=== PATIENT | female | born 1945 | race Caucasian/White ===

== ENCOUNTER → 2017-01-17 | Day surgery (SDC) | payer MEDICARE, MEDICAID ==
[~2017-01-17] MED LIST: ACETAMINOPHEN PO; ADVIL COLD & SI1 TA1 PO; ADVIL COLD & SI1 TA2; ADVIL COLD & SI1 TA2 PO; ALEVE; ALLERGY RELIEF10 MG PO; ALPRAZOLAM PO; AMLODIPINE BESYL5 MG PO; ARTHRITIS PAIN650 M3 PO; ASPIRIN PO; CALCIUM +D & M1 EAC1 PO; CINNAMON ALPHA1 EACH PO; CLARITIN10 M2 PO; COQ-10100 MG PO; LASIX PO; LEVOTHYROXINE50 MCG PO; LEVOTHYROXINE75 MCG PO; LISINOPRIL PO; LORATADINE PO; LORTAB 5/500 TA1 TA1 PO; MAGNESIUM250 M1 PO; OMEPRAZOLE40 M1 PO; OMEPRAZOLE40 MG PO; PHENERGAN25 MG PO; PRILOSEC PO; RED YEAST RICE600 MG PO; SKELAXIN PO; SUDAFED30 M1 PO; SYNTHROID0.05 MG PO; TIROSINT100 MCG PO; TURMERIC500 M1 PO; VITAMIN B 12 SL; VITAMIN B-125000 MC1 PO; VITAMIN B-650 MG PO; VITAMIN D-32000 UNI1 PO; ZESTRIL10 M1 PO; ZESTRIL10 MG PO; [UNRECOGNIZED DRUG - OTHER]
--- NOTE | ~2017-01-17 | OR ---
Unit #: [id number] #: [id number] Patient: SHEREEN BOYD [id number] [address] [place], [place] [address] [id number] O MR#: [id number] NAME: SHEREEN BOYD ROOM: Date of Procedure: 01/17/2017 Admission Date: 01/17/2017 Surgeon: Yazan Lara M.D. : 1945 Attending Physician: Yazan Lara M.D. Referring Physician: Yazan Lara M.D. Primary Care Physician: Kiana Montano M.D. OPERATIVE REPORT PROCEDURE PERFORMED Esophagogastroduodenoscopy, endoscopic retrograde cholangiopancreatography with stent removal. 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 MEDICATIONS Monitored anesthesia. POSTOPERATIVE FINDINGS 1. Existing CBD stent was removed. 2. Sphincterotomy was extended at 12 o'clock position. 3. Ampulla somewhat prominent. Biopsies taken from sides of the ampulla. 4. Cholangiogram obtained shows significant dilation of the common bile duct, but no obstruction otherwise. 5. PD also was mildly dilated. 6. EGD exam shows evidence of hiatal hernia and esophageal ring along with gastritis. PLAN Continue with symptomatic treatment and PPIs. Follow up on the pathology report. DESCRIPTION OF PROCEDURE The patient was explained of the procedure, risks, and benefits along with risks and benefits of anesthesia. She was brought to the endoscopy room. Propofol anesthesia was given. Bite block was placed. The scope was passed down the mouth and esophagus, stomach, duodenum, and distal duodenum. Ampulla was seen, stent was seen extending out of the ampulla. Using the snare, I pulled the stent out of the bile duct in one piece under fluoroscopic and endoscopic guidance. Gently, at this point, we cannulated the bile duct first. Findings have been described above. Sphincterotomy was extended and biopsies were taken from the edges of the ampulla. Pancreatic duct was also injected, it shows some dilation, no clear obstruction was seen. At this point, we pulled the catheter out, limited EGD exam was performed which has findings as described above. The patient tolerated the procedure very well. No major complications were seen. Unit #: [id number] #: [id number] Patient: SHEREEN BOYD Dictated by... Maryann Yusuf/landy TD: 02/02/2017 03:13 JOB #: [id number] OPERATIVE REPORT Page 1 of 1 X aYzan Lara MD PROCEDURE OPERATIVE NOTE
--- NOTE | ~2017-01-17 | CR84 ---
[facility] A Service of [facility] RADIOLOGY TEXT RESULTS PATIENT: SHEREEN BOYD LOCATION: [facility] : 41 UNIT #: [id number] AGE: [address]: Yazan Lara MD SEX: F ORDER DR: [id number] [facility] [address] [place], [place] [address] [id number] O MR#: [id number] Acc #: [id number] NAME: SHEREEN BOYD : 1945 SEX: F STUDY DATE/TIME: 01/17/2017 8:23 UNIT: [facility] ROOM: STUDY DESCRIPTION: CR ERCP Biliary and Pancr SI Attending Physician: Yazan Lara M.D. Referring Physician: Yazan Lara M.D. Ordering Physician: Yazan Lara M.D. Primary Care Physician: Kiana Montano M.D. MEDICAL IMAGING REPORT This report is preliminary unless electronic signature is present EXAM ERCP DATE 01/17/2017 HISTORY ERCP for stent removal. History of CBD stones. COMPARISON ERCP 11/28/2016 FINDINGS 7 spot fluoroscopic images were obtained during ERCP performed by Dr. Cunningham. 4 minutes 52 seconds was documented. Injection of the pancreatic duct is unremarkable. Stent seen in the CBD was removed. Contrast injected in the CBD demonstrates abnormal diffuse abnormal fusiform dilation of the CBD, and mild intrahepatic biliary ductal dilation. There appears to be fairly abrupt tapered narrowing of the downstream CBD. No definite retained stones are seen. According to brief endoscopist notes, sphincterotomy was performed, balloon catheter was used for stone extraction although no stones were seen, and biopsies were obtained. Please refer to the endoscopist report for additional findings and recommendations. Dictated by... Laura Louie M.D. THIS IS AN ELECTRONICALLY VERIFIED REPORT Laura Louie M.D. at 01/18/2017 7:[address] [facility]/to [facility] A Service of [facility] RADIOLOGY TEXT RESULTS PATIENT: SHEREEN BOYD LOCATION: [facility] : 41 UNIT #: [id number] AGE: [address]: Yazan Lara MD SEX: F ORDER DR: TD: 01/17/2017 15:49 JOB #: [id number] MEDICAL IMAGING REPORT Page 1 of 1 COPY
== END | disposition home or self-care (01) ==
LOC: COPS 06:32
DX: K83.1 Obstruction of bile duct (principal); Z88.0 Allergy status to penicillin; Z88.1 Allergy status to other antibiotic agents; K21.9 Gastro-esophageal reflux disease without esophagitis; K59.00 Constipation, unspecified; E11.9 Type 2 diabetes mellitus without complications; E03.9 Hypothyroidism, unspecified; I25.10 Atherosclerotic heart disease of native coronary artery without angina pectoris; I11.9 Hypertensive heart disease without heart failure; I25.2 Old myocardial infarction; F41.9 Anxiety disorder, unspecified
CPT/HCPCS: 74330; 82947; 88104; J1610